=== PATIENT | female | born 1960 | race Caucasian/White ===

== ENCOUNTER 2016-11-07 10:18 | Observation (INO) | payer MEDICARE, OTHER ==
[~2016-11-07] VITALS: Ht 157.5 cm; Wt 64.8 kg
[2016-11-07] VITALS (11 sets, daily range): BP systolic 70–120; BP diastolic 31–93; PULSE 59–79; RESP 13–19; O2SAT 97–100
[~2016-11-07 10:18] MED LIST: ALBU18HF INH; ASPI-973 PO; ATOR80TA77 PO; CHOL100045 PO; CINA60TA PO; CIPR-198 PO; CLOP75TA3 PO; CYCL5TAB PO; DOCU-41 PO; GLUC1KIT IM; LANS30CA PO; LEVO200T6 PO; LORA10CA PO; LORA1TAB PO; METO-301 PO; MIDO5TAB PO; NITR0.4T SL; NOVOLOG PUMP; ONDA4TAB12 PO; PRD5T PO; PROP1DRO4 OP; SENN-133 PO; SEVE800T7 PO; TACR1CAP PO; TRIM100T PO; UBID200C2 PO; VIT1TABL50 PO
--- NOTE | 2016-11-07 10:23 | ED.REPORT ---
HPI-General Illness Date of Service Nov 07, 2016 ED Provider: Dr. 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 [place] through dialysis, her blood pressure was 70/x with a heart rate of 88. At the ED , she rates her pain at 1/10. She is steroid dependent on prednisone. Her chest pain is slightly improved after nitro en route. Per the patient's sister, she has not had a dialysis related complication since May of 2016. Nursing Notes Stated Complaint: LOW BLOOD PRESSURE Nursing Notes Reviewed: Yes Allergies: Coded Allergies: Penicillins (Verified Allergy, Unknown, UNKNOWN (CEPHALOSPORINS [place]), 06/03) Sulfa (Sulfonamide Antibiotics) (Verified Allergy, Unknown, 06/03/16) Scheduled Aspirin (Aspirin) 81 Mg Tablet 81 MG PO QAM Atorvastatin Calcium (Atorvastatin Calcium) 80 Mg Tablet 80 MG PO HS Cholecalciferol (Vitamin D3) (Vitamin D) 1,000 Unit Capsule 1,000 UNIT PO Q2DAY Cinacalcet HCl (Sensipar) 60 Mg Tablet 60 MG PO DAILYWD Take at every dinner. Ciprofloxacin Hcl (Cipro (eq) 500 MG-6 Tab Prepack) 1 Pkg Pkg 1 EACH PO BID x10 days Clopidogrel Bisulfate (Plavix) 75 Mg Tablet 75 MG PO DAILY Lansoprazole (Lansoprazole) 30 Mg Capsule.dr 30 MG PO BID Levothyroxine (Levothyroxine) 200 Mcg Tablet 200 MCG PO DAILY Metoclopramide (Reglan) 10 Mg Tablet 10 MG PO QID Before meals and at bedtime. Midodrine (Midodrine) 5 Mg Tablet 5 MG PO BID Midodrine (Midodrine) 5 Mg Tablet 5 MG PO prior to dialysis Prednisone (PredniSONE) 5 Mg Tab 5 MG PO DAILY Sevelamer Carbonate (Renvela) 800 Mg Tablet 2,400 MG PO TID Tacrolimus (Prograf) 1 Mg Capsule 2 MG PO QAM Tacrolimus (Prograf) 1 Mg Capsule 1 MG PO HS Trimethoprim (Trimethoprim) 100 Mg Tablet 100 MG PO HS Ubidecarenone (Co Q-10) 200 Mg Capsule 200 MG PO DAILY Vit B Cmplx 3/FA/Vit C/Biotin (Nephro-Evelina Rx) 1 Each Tablet 1 EACH PO DAILY Scheduled PRN Albuterol Sulfate (Ventolin HFA Inhaler) 200 Puff/18 Gm Inhaler 2 PUFF INH Q4- 6H PRN PRN For Wheezing Cyclobenzaprine (Cyclobenzaprine) 5 Mg Tablet 5 MG PO TID PRN PRN For Spasm Docusate Sodium (Colace) 100 Mg Capsule 100 MG PO BID PRN PRN For Constipation Glucagon,Human Recombinant (Glucagon Emergency Kit) 1 Mg Kit 1 MG IM PRN Hypoglycemia Loratadine (Claritin) 10 Mg Capsule 10 MG PO DAILY PRN PRN For Congestion Lorazepam (Lorazepam) 1 Mg Tablet 1 MG PO BID PRN PRN For Anxiety or Agitation Nitroglycerin SL (Nitrostat) 0.4 Mg Tab.subl 0.4 MG SL Q5MIN PRN PRN For Chest Pain Ondansetron ODT (Ondansetron ODT) 4 Mg Tab.rapdis 4 MG PO Q4 PRN PRN For Nausea Propylene Glycol/Peg 400/Pf (Systane Ultra 0.4-0.3% Eye Drp) 1 Each Droperette 1 DRP OP BID PRN PRN Dry eyes 1 drop both eyes. Sennosides (Senna) 8.6 Mg Tablet 17.2 MG PO DAILY PRN PRN For Constipation Miscellaneous Medications ([Novolog Pump]) General Time Seen by MD: 10:23 Chief Complaint Chest pain Hx Obtained From: Patient, Floral Assistant, EMS Arrived By: Ambulance Sudden in Onset?: Yes Onset Occurred: Just prior to arrival (d) Symptom Duration: Since onset Location: : Chest Quality: Painful Radiation: : Does not radiate Severity: Current: Pain level 1 out of 10 Recent Healthcare: Recent doctor visit Past Medical History Past Medical History Notes: Patient seen 11/24 and 11/30/15 for hypotension following dialysis Past Medical History History of severe coronary artery disease, status post CABG CABG 01 July 2014 in [place] Diabetes, type 1 Renal failure on hemodialysis Status post renal transplant failed on immunosuppressive Hypertension ho Left pleural effusion post-therapeutic Pleurocentesis History of hypothyroidism NSTEMI Reports: Asthma, Coronary artery disease Past Surgical History Quadruple bypass 2014 Kidney and pancreas transplant in 1993 dialysis catheter placement Cardiac cath September 2014 that angioplasty on a lesion in the [place] obtuse marginal branch and it was noted that the graft was small and not expected this will stay open much longer" Family History Noncontributory Smoking History Never Smoker Social History Alcohol Use: Denies alcohol use Drug Use: Denies drug use Other Social History: , Local resident Ambulatory Status Independent Review of Systems Full Review of Systems Cardiovascular: Reports: Chest pain Complete sys rev & neg: except as marked. Physical Exam Vital Signs Vital Signs Date Time Temp Pulse Resp B/P Pulse Ox O2 Delivery O2 Flow Rate FiO2 11/07/16 14:03 79 15 105/43 99 Room Air 11/07/16 13:08 79 15 85/42 99 Room Air 11/07/16 13:02 78 19 85/42 100 Room Air 11/07/16 12:30 75 16 83/41 97 Room Air 11/07/16 11:25 60 13 70/32 99 Room Air 11/07/16 10:40 65 14 73/31 100 Room Air 11/07/16 10:24 35.6 59 19 120/93 99 Nasal Cannula Initial VS: Reviewed Head / Eyes: Atraumatic, Normocephalic, PERRL ENT: Mucous membranes moist, Conjunctiva normal Abdomen / GI: Soft, Non-tender Extremities: Vascular intact, No swelling Skin: Warm, Dry Distress / Hydration: Positive: Distress moderate Appearance / Presentation: Positive: Obese, Pale Respiratory / Chest: Atraumatic, No respiratory distress dialysis catheter on left chest non infected Interpretation & Diagnostics Lab Results Interpretation Result Diagram: 11/07/16 1046 11/07/16 1046 Test 11/07/16 10:46 White Blood Count 5.5th/mm3 (3.8-10.1) Red Blood Count 4.10mil/mm3 (3.90-5.20) Hemoglobin 12.0g/dL (12.0-15.6) Hematocrit 38.0% (35.0-46.0) Mean Corpuscular Volume 92.7fL (81-100) Mean Corpuscular Hemoglobin 29.3pg (27.0-35.0) Mean Corpuscular Hemoglobin Concent 31.6% (32.0-37.0) Red Cell Distribution Width 17.4% (12.3-15.4) Platelet Count 97bil/L (150-400) Neutrophils (%) (Auto) 50.4% (40-74) Lymphocytes (%) (Auto) 39.8% (14-46) Monocytes (%) (Auto) 5.5% (4-12) Eosinophils (%) (Auto) 3.5% (0-5) Basophils (%) (Auto) 0.6% (0-3) Sodium Level 137mEq/L (134-144) Potassium Level 5.1mEq/L (3.5-5.2) Chloride Level 95mEq/L (97-108) Carbon Dioxide Level 20mmol/L (18-29) Blood Urea Nitrogen 23mg/dL (6-24) Creatinine 3.56mg/dL (0.57-1.00) Estimat Glomerular Filtration Rate 19mL/min (>59) Glucose Level 187mg/dL (60-99) Calcium Level 8.5mg/dL (8.5-10.1) Magnesium Level 2.1mg/dL (1.6-2.6) Total Bilirubin 0.4mg/dL (0.0-1.2) Aspartate Amino Transf (AST/SGOT) 25U/L (0-50) Alanine Aminotransferase (ALT/SGPT) 31U/L (0-32) Alkaline Phosphatase 87U/L (25-150) Troponin T 0.114ug/L (0.0-0.011) Total Protein 5.9g/dL (6.4-8.4) Albumin 3.6g/dL (3.4-5.0) ECG Interpretation ECG Interpretation: later Time: 10:52 Interpreted by: ED physician Normal ECG Interpretation: Normal sinus rhythm (w/ lateral st ) Abnormal T wave or ST segment: ST depression - ant-lat X-Ray Chest Interpretation Chest Xray Interpretation: IMPRESSION: 1. Mildly increased pulmonary vascularity suggests mild volume overload. 2. Bibasilar scars. 3. Coronary artery disease. Dictated by: Analilia Andrade M.D. on 11/07/2016 at 11:13 Approved by: Analilia Andrade M.D. on 11/07/2016 at 11:15 View: Portable Interpretation / Wet Read by: Interpret - Radiologist Re-Eval/Medical Decision Med Decision/Clinical Course Hypotension with chest pain postdialysis my concern for possible ischemia. Patient responded to IV fluids and albumin, she did require multiple consults with cardiology and nephrology. She will be admitted under observation and monitoring. Time of Eval: 10:42 Re-Evaluation/Progress Note: Pt has another episode of chest pain. Time of Eval: 11:19 Re-Evaluation/Progress Note: Pt rechecked. Plan to administer steroids. She denies any further chest pain. Time of Eval: 13:58 Re-Evaluation/Progress Note: Discussed treatment options with patient and her sister. Pt can stay and be admitted to the hospital for further observation if she desires, but Dr. Presley feels comfortable releasing her with follow up later this week. Pt and family will discuss. Time of Eval: 14:23 Re-Evaluation/Progress Note: Patient and sister have decided they would like to be admitted to hospital for further observation. Consultation #1: Referral / Consult Name: Gael Presley MD Consulted With: Cardiology Call Returned at: 11:50 Note: Case discussed w/ Dr. Presley. Recommended IV fluids. Consultation #2: Referral / Consult Name: Kobe Francois MD Consulted With: Nephrology Call Returned at: 12:07 Note: Case discussed with Dr. Francois. Consultation #3: Referral / Consult Name: Aaron Cameron MD Consulted With: Hospitalist Call Returned at: 13:21 Note: Case discussed. Dr. Cameron will see the patient in the ED. Consultation #4: Referral / Consult Name: Gael Presley MD Call Returned at: 13:35 Note: Case discussed. BP is 100/21. Dr. Presley says it is up to the patient to decide if she would like to be admitted for further observation. Consultation #5: Referral / Consult Name: Aaron Cameron MD Call Returned at: 14:26 Note: Discussion with Dr. Cameron in the ED. Counseled Regarding: Diagnosis, Lab results, Need for admission Discharge & Departure Primary Impression: Hypotension Hypotension type: unspecified hypotension type Qualified Code: I95.9 - Hypotension, unspecified Disposition: ADMITTED TO HOSPITAL Discharge Condition All VS Reviewed: Yes Condition: Stable Referrals: Popeye Crowley MD (PCP) Scribe Attestation Portion of this note were transcribed by Damaris Cool. IDr. Roman, personally performed the history, physical exam, and medical decision-making: I reviewed and confirmed the accuracy for the information in the transcribed note. Signed by: juan Sy, 11/07/16 1500 copies to: Popeye Crowley MD, Timothy S DO Nov 07, 2016 10:23 Damaris Cool Nov 07, 2016 10:33
[2016-11-07] MEDS ORDERED: Ondansetron 2 mg/mL 2 mL Inj IVPUSH ONE (10:35)
[2016-11-07] MEDS ORDERED: fentaNYL-PF 50 mCg/mL 2 mL Inj IVPUSH ONE (10:35)
[2016-11-07] MEDS ORDERED: 0.9% Sodium Chloride 500 ML IV ONE ×2 (10:50→13:05)
[2016-11-07 10:51] LABS: BASOPHILS % (AUTO) 0.6 % (0-3); EOSINOPHILS % (AUTO) 3.5 % (0-5); MONOCYTES % (AUTO) 5.5 % (4-12); Mean Corpuscular Hemoglobin 29.3 pg (27.0-35.0); Mean Corpuscular Volume 92.7 fL (81-100); NEUTROPHILS % (AUTO) 50.4 % (40-74); Platelet Count 97 bil/L (150-400)
--- NOTE | 2016-11-07 11:16 | DRSVH ---
PROCEDURE: X-RAY CHEST ONE VIEW, PORTABLE ([id number]) INDICATIONS: chest pain, hypotension TECHNIQUE: One view of the chest was acquired. COMPARISON: [facility], CR, XR CHEST 1VW (PORTABLE), 12/22/2015, 4:04. [facility], CR, XR CHEST 1VW (PORTABLE), 06/03/2016, 9:41. FINDINGS: Surgical changes and devices: Sternotomy and CABG. There is a coronary artery stent. A dialysis cath eter seen with its tip in the right atrium. Lungs and pleura: Pulmonary vascularity is only increased. There are bibasilar scars. Possible small left pleural effusion. No pneumothorax. Mediastinum: Mediastinal contours appear normal. Heart size is normal. Bones and chest wall: No suspicious bony lesions. Overlying soft tissues appear unremarkable. IMPRESSION: 1. Mildly increased pulmonary vascularity suggests mild volume overload. 2. Bibasilar scars. 3. Coronary artery disease. Dictated by: Analilia Andrade M.D. on 11/07/2016 at 11:13 Approved by: Analilia Andrade M.D. on 11/07/2016 at 11:15
[2016-11-07] MEDS ORDERED: Hydrocortisone 50 mg/mL 2 mL Inj IVPUSH ONE (11:20)
[2016-11-07] MEDS ORDERED: 0.9% Sodium Chloride 250 ML IV ONE (11:45)
[2016-11-07] MEDS ORDERED: Albumin 25% 12.5 GM in IV Premix 1 EACH IV ONE (11:45)
[2016-11-07] MEDS ORDERED: Norepineph 8,000 mCg/250 mL NS 8,000 MCG in IV Premix 1 EACH IV SCH (11:45)
[2016-11-07] MEDS ORDERED: 0.9% Sodium Chloride 1,000 ML IV ONE (11:55)
[2016-11-07 11:58] LABS: Magnesium 2.1 mg/dL (1.6-2.6)
[2016-11-07 12:02] LABS: TROPONIN T 0.114 ug/L (0.0-0.011)
[2016-11-07] MEDS ORDERED: Alum-Mag Hydrox-Simeth 30 mL Suspension PO PRN (15:05)
[2016-11-07] MEDS ORDERED: Ondansetron 2 mg/mL 2 mL Inj IVPUSH PRN (15:05)
[2016-11-07] MEDS ORDERED: Polyethylene Glycol (PEG) 17 Gm Powder PO PRN (15:05)
[2016-11-07] MEDS: Heparin 5,000 Unit/mL Inj SUBQ SCH ×2 (16:49→21:09)
--- NOTE | 2016-11-07 19:12 | NUR ---
Admit Note: Patient arrived from the ER at 1540. Patient is alert and oriented x3. She uses her call light appropriately for assistance due to her hypotension. Patent stated that she is having no pain . her only skin issue is her scattered bruises to her arms and legs due to her blood thinners. Patients admit questions were completed in the ER by the Admit nurse. Patient has her own insulin pump to deliver the appropriate dose of insulin after her blood sugar checks.
--- NOTE | 2016-11-07 21:37 | PCM.HPMED ---
Subjective Date of Service Nov 07, 2016 Primary Provider: Admitting Physician: Denver Morales MD Primary Care Physician: Popeye Crowley MD Attending Physician: Denver Morales MD Admit Status: From the Emergency Department, Full Admit, Admit to Green Team Chief Complaint: "Low blood pressure" History of Present Illness: The patient is a 56-year-old pleasant white female with a history of severe coronary artery disease, status post coronary artery bypass graft surgery 4 vessel, type I diabetes mellitus, end-stage renal disease status post failed renal and pancreatic transplants on immunosuppressive therapy and on hemodialysis. Patient has also has a history of hypertension, non-ST elevated ND, history of left pleural effusion status post therapeutic pleurocentesis and hypothyroidism who was on hemodialysis today and long-term through dialysis her blood pressure was found to be extremely low with a systolic blood pressure in the 70s. And a heart rate of 88. Her dialysis was discontinued in she was given mannitol and albumin blood pressure went up to 127 and patient was transferred to the [facility] emergency room. Patient was evaluated by Dr. Ayush Roman and patient's blood pressure dropped again to a systolic blood pressure of 69 she also had chest pain while on hemodialysis and due to some EKG changes Dr. Ayush Roman contacted Dr. Gael Presley for cardiology consultation. The patient was given 2 L of normal saline and her blood pressure improved with systolic blood pressure in the 90s. Patient had a troponin drawn which was no higher than previous troponins and patient's chest pain resolved. Patient was admitted to the hospital service for further evaluation and treatment recommendations. Review of Systems: General: She is lying supine in bed in no apparent distress. HEENT: Patient has no headache, patient has no diplopia, patient has decreased peripheral vision. Patient has no problems with their ears, nose or throat. Patient has no known dental problems. Patient has no pharyngitis or history of thrush. Neck: Patient has no stiffness in the neck. Patient has no lymphadenopathy. Patient has no other problems with their neck. Pulmonary: Patient has no shortness of breath, no cough, no expectoration of sputum. Patient has no pleurisy. Patient had chest pain on hemodialysis. However, the chest pain has resolved. Patient has no history of asthma or COPD. the patient has a nodule on his left lung which has calcified. Cardiovascular: Patient had chest pain on hemodialysis. However, just pain has resolved. Patient has a history of a heart murmur, however she does not know anymore about it. Patient has no palpitations. Patient has had a history of 2 small myocardial infarctions. One episode she had a cardiac cath in September 2014 and an angioplasty and a lesion in the kalispel obtuse marginal branch there was noted that the graft was small and was not expected to stay open much longer and the patient had a small "heart attack" soon thereafter. Patient also had a non-ST elevated ND in December 2015. Patient went for a core coronary artery catheterization and there was no significant lesions. It was felt that the myocardial infarction was induced by prolonged low blood pressure. Gastrointestinal: Patient has no history of hepatitis A, B or C. Patient has no history of gastroesophageal reflux disease. Patient has no history of nausea , vomiting, or diarrhea. Patient has no history of hematemesis, hematochezia, or melena. Patient has no history of colitis. Patient does have a history of gastroparesis and is on Reglan on a when necessary basis for this condition. 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 There is patient developed a bladder infection 2013 which led to pyelonephritis and she lost her kidney function the transplanted kidney remains in her abdomen. Patient had problems with her pancreas which was extruding enzymes into her bladder and she had her pancreas removed May 2016. Genitourinary: Patient produces approximately 2 tablespoons of urine per day Musculoskeletal: Patient has a history of Charcot foot on the right after a fracture. Patient has had a left fifth toe amputation. Neurologic: Patient has no history of stroke, no history of seizure, no history of TIA. Psychiatric: Patient has no history of psychiatric problems. The remainder of the entire review of systems was reviewed with patient and is as mentioned above otherwise negative. Allergies Coded Allergies: Penicillins (Verified Allergy, Unknown, UNKNOWN (CEPHALOSPORINS OK), 06/03) Sulfa (Sulfonamide Antibiotics) (Verified Allergy, Unknown, 06/03/16) Home Medications Scheduled Aspirin (Aspirin) 81 Mg Tablet 81 MG PO QAM Atorvastatin Calcium (Atorvastatin Calcium) 80 Mg Tablet 80 MG PO HS Cholecalciferol (Vitamin D3) (Vitamin D) 1,000 Unit Capsule 1,000 UNIT PO Q2DAY Cinacalcet HCl (Sensipar) 60 Mg Tablet 60 MG PO DAILYWD Take at every dinner. Ciprofloxacin Hcl (Cipro (eq) 500 MG-6 Tab Prepack) 1 Pkg Pkg 1 EACH PO BID x10 days Clopidogrel Bisulfate (Plavix) 75 Mg Tablet 75 MG PO DAILY Lansoprazole (Lansoprazole) 30 Mg Capsule.dr 30 MG PO BID Levothyroxine (Levothyroxine) 200 Mcg Tablet 200 MCG PO DAILY Metoclopramide (Reglan) 10 Mg Tablet 10 MG PO QID Before meals and at bedtime. Prednisone (PredniSONE) 5 Mg Tab 5 MG PO DAILY Sevelamer Carbonate (Renvela) 800 Mg Tablet 2,400 MG PO TID Tacrolimus (Prograf) 1 Mg Capsule 1 MG PO HS Ubidecarenone (Co Q-10) 200 Mg Capsule 200 MG PO DAILY Vit B Cmplx 3/FA/Vit C/Biotin (Nephro-Evelina Rx) 1 Each Tablet 1 EACH PO DAILY Scheduled PRN Albuterol Sulfate (Ventolin HFA Inhaler) 200 Puff/18 Gm Inhaler 2 PUFF INH Q4- 6H PRN PRN For Wheezing Cyclobenzaprine (Cyclobenzaprine) 5 Mg Tablet 5 MG PO TID PRN PRN For Spasm Docusate Sodium (Colace) 100 Mg Capsule 100 MG PO BID PRN PRN For Constipation Glucagon,Human Recombinant (Glucagon Emergency Kit) 1 Mg Kit 1 MG IM PRN Hypoglycemia Loratadine (Claritin) 10 Mg Capsule 10 MG PO DAILY PRN PRN For Congestion Lorazepam (Lorazepam) 1 Mg Tablet 1 MG PO BID PRN PRN For Anxiety or Agitation Nitroglycerin SL (Nitrostat) 0.4 Mg Tab.subl 0.4 MG SL Q5MIN PRN PRN For Chest Pain Ondansetron ODT (Ondansetron ODT) 4 Mg Tab.rapdis 4 MG PO Q4 PRN PRN For Nausea Propylene Glycol/Peg 400/Pf (Systane Ultra 0.4-0.3% Eye Drp) 1 Each Droperette 1 DRP OP BID PRN PRN Dry eyes 1 drop both eyes. Sennosides (Senna) 8.6 Mg Tablet 17.2 MG PO DAILY PRN PRN For Constipation Miscellaneous Medications ([Novolog Pump]) PMH History of severe coronary artery disease, status post CABG 4 vessel with a "small heart attack" after closure of one of the grafts in September 2014. CABG 01 July 2014 in [place] Diabetes, type 1 diagnosed at the age of 6 Renal failure on hemodialysis Status post renal and pancreatic transplant in 1993 which failed. 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 After removal of her pancreas are blood pressure actually became quite elevated and she was taken off the Florinef. History of Left pleural effusion post-therapeutic Pleurocentesis on multiple occasions History of hypothyroidism NSTEMI in December 2015. Patient underwent a coronary artery catheterization which revealed no new lesions and the non-ST elevated ND was thought to be due to prolonged low blood pressure. History of Asthma Coronary artery disease Surgical History Quadruple bypass 2013 Kidney and pancreas transplant in 1993. The patient had her pancreas subsequently removed in May 2016.. Patient has had a hemodialysis catheter placement. Cardiac cath September 2014 that angioplasty on a lesion in the kalispel obtuse marginal branch and it was noted that the graft was small and not expected this will stay open much longer". Patient had a right upper strength fistula placement in 2013. Patient has had bilateral cataract surgery. Patient has had an amputation of the left fifth toe. Family History The patient's father had a massive ND at the age of 48 and he survived is now 85. He also has colon cancer stage for which he has survived. His history of bladder cancer. He now has CLL with and autoimmune component. He also has had a fibrotic condition over his heart which is required 2 surgeries. The patient's mother is 79 and healthy. The patient has 1 sister, who is a dialysis nurse and is 58 and healthy, her name is Deya. Patient has 1 brother who is healthy. Social History Hx Alcohol Use: No Hx Substance Use: No Hx Tobacco Use: No Smoking Status: Never Smoker Living Arrangement: with Family Additional Information Patient was born in [place] and went to [employer] and graduated. 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 She has since retired. She has been to her Dave for 17 years. She is 0 para 0 and reached menopause at the age of 53. She lives with Elijah Clay and with HER-2 cats. Exam Vital Signs Vital Sign - Last Date Time Temp Pulse Resp B/P Pulse Ox O2 Delivery O2 Flow Rate FiO2 11/07/16 21:11 36.7 77 16 119/68 97 Room Air Exam General: Patient is laying supine in bed in no apparent distress HEENT: Head is atraumatic and normocephalic. Eyes: Pupils are equally round and reactive to light and accommodation. However, they are very narrow and she states that they are "always like that". Extraocular muscles are intact. Sclera are white, anicteric. Subconjunctival mucosa is pink. Ears and nose are unremarkable. Oropharynx: There is no mucosal lesions, there is no thrush, there is no pharyngitis. Neck: Is supple, there are no nodes, or masses or tenderness. Chest: Is clear to auscultation and percussion. There are no rales, rhonchi, wheezes or rubs. There is an old subclavian scar well-healed on the right. There is a tunneled hemodialysis catheter in the left subclavian area. There is a nonfunctional fistula in the right upper extremity. Heart: Rate, rhythm is regular. There is a grade 2 to 3/6 systolic ejection murmur heard best at the left sternal border radiating towards the base. There is no rub or gallop appreciated. Abdomen: Good bowel sounds are present. Abdomen is soft, nontender, no organomegaly or masses were appreciated. Insulin pump is present in the left lower quadrant all incisions are well-healed and there does not appear to be any hernias. Extremities: Are symmetrical and well perfused. There is no edema, there is no cellulitis, no rash. There is scattered areas of ecchymosis of the left upper extremity greater than the right upper extremity and the left lower survey greater than the right lower extremity Neurologic: There are no focal neurological deficits. Cranial nerves II through XII are intact. There are no sensory or motor deficits. Psychiatric: Patients mood is calm and she shows no sign of agitation. Genital: Deferred Rectal: Deferred Lab and Diagnostics Result Diagram: 11/07/16 1046 11/07/16 1046 X-Rays, CTs and MRIs PROCEDURE: X-RAY CHEST ONE VIEW, PORTABLE ([id number]) INDICATIONS: chest pain, hypotension TECHNIQUE: One view of the chest was acquired. COMPARISON: [facility], CR, XR CHEST 1VW (PORTABLE), 12/22/2015, 4: 04. [facility], CR, XR CHEST 1VW (PORTABLE), 06/03/2016, 9:41. FINDINGS: Surgical changes and devices: Sternotomy and CABG. There is a coronary artery stent. A dialysis catheter seen with its tip in the right atrium. Lungs and pleura: Pulmonary vascularity is only increased. There are bibasilar scars. Possible small left pleural effusion. No pneumothorax. Mediastinum: Mediastinal contours appear normal. Heart size is normal. Bones and chest wall: No suspicious bony lesions. Overlying soft tissues appear unremarkable. IMPRESSION: 1. Mildly increased pulmonary vascularity suggests mild volume overload. 2. Bibasilar scars. 3. Coronary artery disease. Dictated by: Analilia Andrade M.D. on 11/07/2016 at 11:13 Approved by: Analilia Andrade M.D. on 11/07/2016 at 11:15 Cardiac Echo Impressions Echocardiogram Report Name: LAMAR DALEY LStudy Date: 09/03 Height: 62 in Hospital Exam Location: [facility] Weight: 138 lb Gender: Female BSA: 1.6 m2 : 1960 Age: 56 yrs BP: 145/73 mmHg Reason For Study: Atherosclerotic heart disease History: CABG Ordering Physician: Performed By: Debbie Carpenter Interpretation Summary The left ventricle is normal in size. There is mild-moderate concentric left ventricular hypertrophy. The ejection fraction is estimated to be 55-60%. There is posterolateral wall mild hypokinesis. Assessment of diastolic parameters indicates normal left ventricular diastolic function and normal filling pressures. The right ventricle is normal in size and function. The tip of the dialysis catheter is seen in the right atrium. The IVC is of normal diameter and collapses greater than 50% with a sniff. This suggests a low right atrial pressure of 3 mm Hg. No other echocardiographic abnormalities seen. Compared with the prior exam from 12/21/2015, the patient is no longer in atrial flutter and the posterior wall hypokinesis is more apparent on the current exam. Assessment & Plan The patient is a 56-year-old pleasant white female with a history of severe coronary artery disease, status post coronary artery bypass graft surgery 4 vessel, type I diabetes mellitus, end-stage renal disease status post failed renal and pancreatic transplants on immunosuppressive therapy and on hemodialysis. Patient has also has a history of hypertension, non-ST elevated ND, history of left pleural effusion status post therapeutic pleurocentesis and hypothyroidism who was on hemodialysis today and long-term through dialysis her blood pressure was found to be extremely low with a systolic blood pressure in the 70s. And a heart rate of 88. Her dialysis was discontinued in she was given mannitol and albumin blood pressure went up to 127 and patient was transferred to the [facility] emergency room. Patient was evaluated by Dr. Ayush Roman and patient's blood pressure dropped again to a systolic blood pressure of 69 she also had chest pain while on hemodialysis and due to some EKG changes Dr. Ayush Roman contacted Dr. Gael Presley for cardiology consultation. The patient was given 2 L of normal saline and her blood pressure improved with systolic blood pressure in the 90s. Patient had a troponin drawn which was no higher than previous troponins and patient's chest pain resolved. Patient was admitted to the hospital service for further evaluation and treatment recommendations. # Hypertension, present at the time of admission. Improved however patient is over 4 L above her dry weight. - Possibly due to adrenal insufficiency. Will check cortisol level in a.m. - Possibly due to cardiomyopathy. Consider repeat echocardiogram Dr. Gael Presley has been consulted. - Possibly due to dehydration which is unlikely as patient is over 4 L above her dry weight. # Type I diabetes mellitus - Patient is on an insulin pump. - Check blood sugars before meals and at bedtime # Chest pain - History of severe coronary artery disease status post coronary bypass graft surgery 4 in June 2014 in [place] - History of myocardial infarction after cardiac cath in September 2014 with angioplasty and a lesion in the kalispel obtuse marginal branch at the time was noted that the graft there was small and not expected to stay open much longer. - History of non-ST elevated myocardial infarction in December 2015. Patient underwent coronary catheterization was determined that the infarction was due to prolonged low blood pressure. # Diabetic nephropathy with end-stage renal disease - Status post failed renal pancreatic transplant. - We will consult Dr. Worthy of nephrology # History of hypertension - We will hold all antihypertensives at this time as patient is hypotensive now - Nephrology and cardiology are consulted. # History of hypothyroidism - Continue replacement therapy - Check TSH level Disposition: Patient is likely to be here greater than 2 midnights for the evaluation and treatment of the above conditions, therefore patient was admitted as an inpatient. Pain Evaluation: Adequate Pain Control GI Prophylaxis: Proton Pump Inhibitor VTE Prophylaxis: Sub-Q Heparin (Unfractionated) Resuscitation Status: CPR: Attempt Resuscitation Denver Morales MD Nov 07, 2016 21:37
[2016-11-07] MEDS ORDERED: LORazepam 1 mg Tablet PO PRN (23:20)
[2016-11-07] MEDS ORDERED: Artificial Tears 15 mL Ophthalmic Solution BOTH_EYES PRN (23:30)
[2016-11-08 00:54] VITALS: BP 100/56; PULSE 76; RESP 16; O2SAT 99
[2016-11-08] MEDS ORDERED: HYDROcodone-APAP 5-325 mg Tablet PO PRN (02:25)
[2016-11-08 05:38] VITALS: BP 119/76; PULSE 83; RESP 16; O2SAT 100
[2016-11-08 05:45] LABS: BASOPHILS % (AUTO) 0.2 % (0-3); EOSINOPHILS % (AUTO) 1.5 % (0-5); Mean Corpuscular Hemoglobin 28.9 pg (27.0-35.0); Mean Corpuscular Volume 90.7 fL (81-100); NEUTROPHILS % (AUTO) 36.5 % (40-74); Platelet Count 133 bil/L (150-400)
[2016-11-08 05:49] VITALS: PULSE 77
[2016-11-08 05:55] LABS: ERYTHROCYTE SEDIMENTATION RATE 9 mm/hr (0-40)
[2016-11-08 06:07] LABS: Magnesium 2.5 mg/dL (1.6-2.6)
--- NOTE | 2016-11-08 06:50 | NUR ---
Blood sugar Patient managing own insulin with insulin pump. blood sugar checked with hospital glucometer. bed time blood sugar 326 patient administered 10 units of insulin. at 0500 patient blood sugar 55, patient cold clammy, alert and oriented. she was given apple juice per request. 15 minutes later blood sugar 52. patient declined any more food/drink states "i am a dialysis patient i don't want too much fluid. Patient requested D50 half amp. no orders paged. patient given saltines and peanut butter during wait. Administered D50 half amp. 15 minutes later blood sugar 108. will continue to monitor.
[2016-11-08] MEDS ORDERED: Albuterol 2.5 mg/3 mL Inhalation Solution NEB PRN (07:00)
[2016-11-08] MEDS ORDERED: Pantoprazole 40 mg ER24 Tablet PO SCH (07:30)
[2016-11-08 08:00] VITALS: PULSE 63
[2016-11-08] MEDS: Heparin 5,000 Unit/mL Inj SUBQ SCH (08:15)
[2016-11-08] MEDS ORDERED: predniSONE 5 mg Tablet PO SCH (08:30)
[2016-11-08] MEDS ORDERED: Vitamin B Complex/Vit C Tablet PO SCH (08:30)
[2016-11-08 09:36] VITALS: BP 108/64; PULSE 65; RESP 18; O2SAT 99
[2016-11-08] MEDS ORDERED: INSULIN PUMP SUBQ SCH (10:15)
--- NOTE | 2016-11-08 10:28 | NUR ---
Social Work: Initial Assessment / Readiness for d/c Data: Pt is a 56 y/o female admitted for hypotension, ESRD, chest pain. Pt's PCP is Dr Crowley, pt's insurance is [employer] [facility], Medicare. EMR reviewed. Readmit score not listed. MANAGER ACTUARIAL met with pt at bedside, role explained. Pt states she lives in [place] in a single story home with her spouse where she uses no DME, does not drive, has no hx of HH or SNF, no LTC or VA benefits. Pt does not have AD/DPOA, accepted info from MANAGER ACTUARIAL. No d/c planning needs at this time. MANAGER ACTUARIAL will continue to follow if needs arise. Assessment: Pt who is independent at baseline. Plan: Pt will d/c home via POV with family, likely today per MD. No d/c planning needs at this time. MANAGER ACTUARIAL will continue to follow if needs arise. SUSSY Marquez Addendum: 11/08/16 at 1031 by FANNY JOYCE Amended: Links added.
--- NOTE | 2016-11-08 10:31 | NUR ---
Social Work: Discharge Data: Pt is on day 1 of hospitalization. EMR reviewed. D/C orders are in. No d/c needs. DEFECT REPAIRER [employer] will continue to follow if needs arise. Plan: Pt will d/c home today via POV with family. No d/c needs. DEFECT REPAIRER [employer]WARE will continue to follow if needs arise. SUSSY Marquez
--- NOTE | 2016-11-08 10:35 | PCM.DIMED ---
Discharge Instructions Date of Service Nov 08, 2016 Dates of Hospitalization Nov 07, 2016 at 14:45 Discharge Diagnosis Discharge Diagnosis Hypotension Diet Heart Healthy, Renal Diet Activity No restrictions (Patient may resume usual activities gradually as tolerated.) Call your provider Fever or Chills, Shortness of breath, Bleeding, Chest pain, Vomitting, Excessive diarrhea, Weakness (unilateral) Patient Instructions Follow-up Provider: Tammi Tian MD Follow-up with PCP in: 1 week Provider: Martha Eaton MD, PhD Follow-up in: 1 week (Patient has an appointment today.) Denver Morales MD Nov 08, 2016 10:35
--- NOTE | 2016-11-08 11:40 | NUR ---
Discharge Nursing Note: Patient was discharged to home at 1140. Her IVs x2 were removed intact. Her Telemetry was discontinued intact. All of her discharge information was reviewed with her and her questions were answered to her satisfaction. She was brought to the hospital lobby in a wheelchair by nursing staff member and she was driven to home by her .
--- NOTE | 2016-11-09 00:16 | PCM.DC.MED ---
Discharge Summary Date of Service Nov 08, 2016 Dates of Hospitalization Date of Hospital Admission Nov 07, 2016 at 14:45 Date of Discharge: Nov 08, 2016 Providers: Admitting Physician: Denver Morales MD Primary Care Physician: Popeye Crowley MD Attending Physician: Denver Morales MD Diagnosis at Time of Discharge Diagnosis at Time of Discharge Hypotension Consultations Dr. Balaji Worthy of nephrology. Procedures XRay, CTs & MRIs PROCEDURE: X-RAY CHEST ONE VIEW, PORTABLE ([id number]) INDICATIONS: chest pain, hypotension TECHNIQUE: One view of the chest was acquired. COMPARISON: [facility], CR, XR CHEST 1VW (PORTABLE), 12/22/2015, 4: 04. [facility], CR, XR CHEST 1VW (PORTABLE), 06/03/2016, 9:41. FINDINGS: Surgical changes and devices: Sternotomy and CABG. There is a coronary artery stent. A dialysis catheter seen with its tip in the right atrium. Lungs and pleura: Pulmonary vascularity is only increased. There are bibasilar scars. Possible small left pleural effusion. No pneumothorax. Mediastinum: Mediastinal contours appear normal. Heart size is normal. Bones and chest wall: No suspicious bony lesions. Overlying soft tissues appear unremarkable. IMPRESSION: 1. Mildly increased pulmonary vascularity suggests mild volume overload. 2. Bibasilar scars. 3. Coronary artery disease. Dictated by: Analilia Andrade M.D. on 11/07/2016 at 11:13 Approved by: Analilia Andrade M.D. on 11/07/2016 at 11:15 Cardiac Echo Impression Echocardiogram Report Name: LAMAR DALEY LStudy Date: 09/03 Height: 62 in Hospital Exam Location: [facility] Weight: 138 lb Gender: Female BSA: 1.6 m2 : 1960 Age: 56 yrs BP: 145/73 mmHg Reason For Study: Atherosclerotic heart disease History: CABG Ordering Physician: Performed By: Debbie Carpenter Interpretation Summary The left ventricle is normal in size. There is mild-moderate concentric left ventricular hypertrophy. The ejection fraction is estimated to be 55-60%. There is posterolateral wall mild hypokinesis. Assessment of diastolic parameters indicates normal left ventricular diastolic function and normal filling pressures. The right ventricle is normal in size and function. The tip of the dialysis catheter is seen in the right atrium. The IVC is of normal diameter and collapses greater than 50% with a sniff. This suggests a low right atrial pressure of 3 mm Hg. No other echocardiographic abnormalities seen. Compared with the prior exam from 12/21/2015, the patient is no longer in atrial flutter and the posterior wall hypokinesis is more apparent on the current exam. Brief History The patient is a 56[facility] with a history of severe coronary artery disease, status post coronary artery bypass graft surgery 4 vessel, type I diabetes mellitus, end-stage renal disease status post failed renal and pancreatic transplants on immunosuppressive therapy and on hemodialysis. Patient has also has a history of hypertension, non-ST elevated MO, history of left pleural effusion status post therapeutic pleurocentesis and hypothyroidism who was on hemodialysis today and nursing home through dialysis her blood pressure was found to be extremely low with a systolic blood pressure in the 70s. And a heart rate of 88. Her dialysis was discontinued in she was given mannitol and albumin blood pressure went up to 127 and patient was transferred to the [facility] emergency room. Patient was evaluated by Dr. Ayush Roman and patient's blood pressure dropped again to a systolic blood pressure of 69 she also had chest pain while on hemodialysis and due to some EKG changes Dr. Ayush Roman contacted Dr. Gael Presley for cardiology consultation. The patient was given 2 L of normal saline and her blood pressure improved with systolic blood pressure in the 90s. Patient had a troponin drawn which was no higher than previous troponins and patient's chest pain resolved. Patient was admitted to the hospital service for further evaluation and treatment recommendations. Hospital Course The patient is a 56-[facility] female with a history of severe coronary artery disease, status post coronary artery bypass graft surgery 4 vessel, type I diabetes mellitus, end-stage renal disease status post failed renal and pancreatic transplants on immunosuppressive therapy and on hemodialysis. Patient has also has a history of hypertension, non-ST elevated MO, history of left pleural effusion status post therapeutic pleurocentesis and hypothyroidism who was on hemodialysis today and nursing home through dialysis her blood pressure was found to be extremely low with a systolic blood pressure in the 70s. And a heart rate of 88. Her dialysis was discontinued in she was given mannitol and albumin blood pressure went up to 127 and patient was transferred to the [facility] emergency room. Patient was evaluated by Dr. Ayush Roman and patient's blood pressure dropped again to a systolic blood pressure of 69 she also had chest pain while on hemodialysis and due to some EKG changes Dr. Ayush Roman contacted Dr. Gael Presley for cardiology consultation. The patient was given 2 L of normal saline and her blood pressure improved with systolic blood pressure in the 90s. Patient had a troponin drawn which was no higher than previous troponins and patient's chest pain resolved. Patient was admitted to the hospital service for further evaluation and treatment recommendations. # Hypertension, present at the time of admission. Improved however patient is over 4 L above her dry weight. - Possibly due to adrenal insufficiency. Will check cortisol level in a.m. - Possibly due to cardiomyopathy. Consider repeat echocardiogram Dr. Gael Presley has been consulted. - Possibly due to dehydration which is unlikely as patient is over 4 L above her dry weight. # Type I diabetes mellitus - Patient is on an insulin pump. - Check blood sugars before meals and at bedtime # Chest pain - History of severe coronary artery disease status post coronary bypass graft surgery 4 in June 2014 in [place] - History of myocardial infarction after cardiac cath in September 2014 with angioplasty and a lesion in the sun'aq obtuse marginal branch at the time was noted that the graft there was small and not expected to stay open much longer. - History of non-ST elevated myocardial infarction in December 2015. Patient underwent coronary catheterization was determined that the infarction was due to prolonged low blood pressure. # Diabetic nephropathy with end-stage renal disease - Status post failed renal pancreatic transplant. - We will consult Dr. Worthy of nephrology # History of hypertension - We will hold all antihypertensives at this time as patient is hypotensive now - Nephrology and cardiology are consulted. # History of hypothyroidism - Continue replacement therapy - Check TSH level Disposition: Patient has been stable since admission. Dr. Worthy discussed the patient's case with the patient's installation helper Dr. Francois who agrees to see the patient in his office this afternoon. Therefore, we will discharge patient home to follow-up with Dr. Francois this afternoon. Exam Vital Signs (Last) Date Time Temp Pulse Resp B/P Pulse Ox O2 Delivery O2 Flow Rate FiO2 11/08/16 09:36 36.8 65 18 108/64 99 Room Air Exam General: Patient is laying supine in bed in no apparent distress HEENT: Head is atraumatic and normocephalic. Eyes: Pupils are equally round and reactive to light and accommodation. However, they are very narrow and she states that they are "always like that". Extraocular muscles are intact. Sclera are white, anicteric. Subconjunctival mucosa is pink. Ears and nose are unremarkable. Oropharynx: There is no mucosal lesions, there is no thrush, there is no pharyngitis. Neck: Is supple, there are no nodes, or masses or tenderness. Chest: Is clear to auscultation and percussion. There are no rales, rhonchi, wheezes or rubs. There is an old subclavian scar well-healed on the right. There is a tunneled hemodialysis catheter in the left subclavian area. There is a nonfunctional fistula in the right upper extremity. Heart: Rate, rhythm is regular. There is a grade 2 to 3/6 systolic ejection murmur heard best at the left sternal border radiating towards the base. There is no rub or gallop appreciated. Abdomen: Good bowel sounds are present. Abdomen is soft, nontender, no organomegaly or masses were appreciated. Insulin pump is present in the left lower quadrant all incisions are well-healed and there does not appear to be any hernias. Extremities: Are symmetrical and well perfused. There is no edema, there is no cellulitis, no rash. There is scattered areas of ecchymosis of the left upper extremity greater than the right upper extremity and the left lower survey greater than the right lower extremity Neurologic: There are no focal neurological deficits. Cranial nerves II through XII are intact. There are no sensory or motor deficits. Psychiatric: Patients mood is calm and she shows no sign of agitation. Genital: Deferred Rectal: Deferred Test 11/07/16 15:50 11/08/16 05:15 Troponin T 0.113ug/L (0.0-0.011) White Blood Count 8.5th/mm3 (3.8-10.1) Red Blood Count 4.08mil/mm3 (3.90-5.20) Hemoglobin 11.8g/dL (12.0-15.6) Hematocrit 37.0% (35.0-46.0) Mean Corpuscular Volume 90.7fL (81-100) Mean Corpuscular Hemoglobin 28.9pg (27.0-35.0) Mean Corpuscular Hemoglobin Concent 31.9% (32.0-37.0) Red Cell Distribution Width 17.8% (12.3-15.4) Platelet Count 133bil/L (150-400) Neutrophils (%) (Auto) 36.5% (40-74) Lymphocytes (%) (Auto) 44.4% (14-46) Monocytes (%) (Auto) 17.0% (4-12) Eosinophils (%) (Auto) 1.5% (0-5) Basophils (%) (Auto) 0.2% (0-3) Erythrocyte Sedimentation Rate 9mm/hr (0-40) Sodium Level 137mEq/L (134-144) Potassium Level 5.0mEq/L (3.5-5.2) Chloride Level 98mEq/L (97-108) Carbon Dioxide Level 21mmol/L (18-29) Blood Urea Nitrogen 52mg/dL (6-24) Creatinine 5.96mg/dL (0.57-1.00) Estimat Glomerular Filtration Rate 10mL/min (>59) Glucose Level 49mg/dL (60-99) Calcium Level 9.2mg/dL (8.5-10.1) Magnesium Level 2.5mg/dL (1.6-2.6) Total Bilirubin 0.2mg/dL (0.0-1.2) Aspartate Amino Transf (AST/SGOT) 28U/L (0-50) Alanine Aminotransferase (ALT/SGPT) 32U/L (0-32) Alkaline Phosphatase 92U/L (25-150) C-Reactive Protein 0.5mg/dL (0.0-0.5) Total Protein 5.9g/dL (6.4-8.4) Albumin 3.8g/dL (3.4-5.0) Triglycerides Level 36mg/dL (0-149) Cholesterol Level 79mg/dL (100-199) LDL Cholesterol, Calculated 8.800mg/dL (0-99) VLDL Cholesterol 7.200mg/dL HDL Cholesterol 63mg/dL (>39) Cholesterol/HDL Ratio 1.25 (0.0-4.4) Procalcitonin 3.21ng/mL (0.00-0.08) Thyroid Stimulating Hormone (TSH) 0.213uIU/mL (0.450-4.500) Discharge Medications Discharge Medications Aspirin (Aspirin) 81 Mg Tablet 81 MG PO QAM (Reported) Atorvastatin Calcium (Atorvastatin Calcium) 80 Mg Tablet 80 MG PO HS (Reported) Cholecalciferol (Vitamin D3) (Vitamin D) 1,000 Unit Capsule 1,000 UNIT PO Q2DAY (Reported) Cinacalcet HCl (Sensipar) 60 Mg Tablet 60 MG PO DAILYWD (Reported) Take at every dinner. Clopidogrel Bisulfate (Plavix) 75 Mg Tablet 75 MG PO DAILY Prescribed by: ALVIN FRANCO MD Lansoprazole (Lansoprazole) 30 Mg Capsule.dr 30 MG PO BID (Reported) Levothyroxine (Levothyroxine) 200 Mcg Tablet 200 MCG PO DAILY (Reported) Metoclopramide (Reglan) 10 Mg Tablet 10 MG PO QID (Reported) Before meals and at bedtime. Prednisone (PredniSONE) 5 Mg Tab 5 MG PO DAILY (Reported) Sevelamer Carbonate (Renvela) 800 Mg Tablet 2,400 MG PO TID (Reported) Tacrolimus (Prograf) 1 Mg Capsule 1 MG PO HS (Reported) Ubidecarenone (Co Q-10) 200 Mg Capsule 200 MG PO DAILY (Reported) Vit B Cmplx 3/FA/Vit C/Biotin (Nephro-Evelina Rx) 1 Each Tablet 1 EACH PO DAILY ( Reported) As needed Albuterol Sulfate (Ventolin HFA Inhaler) 200 Puff/18 Gm Inhaler 2 PUFF INH Q4- 6H PRN PRN For Wheezing (Reported) Cyclobenzaprine (Cyclobenzaprine) 5 Mg Tablet 5 MG PO TID PRN PRN For Spasm ( Reported) Docusate Sodium (Colace) 100 Mg Capsule 100 MG PO BID PRN PRN For Constipation ( Reported) Glucagon,Human Recombinant (Glucagon Emergency Kit) 1 Mg Kit 1 MG IM PRN Hypoglycemia (Reported) Loratadine (Claritin) 10 Mg Capsule 10 MG PO DAILY PRN PRN For Congestion ( Reported) Lorazepam (Lorazepam) 1 Mg Tablet 1 MG PO BID PRN PRN For Anxiety or Agitation ( Reported) Nitroglycerin SL (Nitrostat) 0.4 Mg Tab.subl 0.4 MG SL Q5MIN PRN PRN For Chest Pain (Reported) Ondansetron ODT (Ondansetron ODT) 4 Mg Tab.rapdis 4 MG PO Q4 PRN PRN For Nausea (Reported) Propylene Glycol/Peg 400/Pf (Systane Ultra 0.4-0.3% Eye Drp) 1 Each Droperette 1 DRP OP BID PRN PRN Dry eyes (Reported) 1 drop both eyes. Sennosides (Senna) 8.6 Mg Tablet 17.2 MG PO DAILY PRN PRN For Constipation ( Reported) Miscellaneous Medications ([Novolog Pump]) (Reported) Followup Plan Disposition: The patient is being discharged home. Discharge Diet: Heart Healthy, Renal Diet Discharge Activity: No restrictions (Patient may resume usual activities gradually as tolerated.) Follow-up Provider: Tammi Tian MD Follow-up with PCP in: 1 week Provider: Martha Eaton MD, PhD Follow-up in: 1 week (Patient has an appointment today.) Time spent Discharge time spent was less than 30 minutes. Denver Morales MD Nov 09, 2016 00:16
== END 2016-11-08 11:34 | disposition home or self-care (01) ==
LOC: EDUNIT# 10:18 → SED 10:18 → EDBD 10:18 → CCU 13:36 → UNDOADMIN 13:36 → MPC 14:45 → INTOOBSV 14:45
PROVIDERS: ADMIT Internal Medicine Infectious Disease; ATTEND Internal Medicine Infectious Disease
DX: I95.3 Hypotension of hemodialysis (principal); R07.9 Chest pain, unspecified; Z99.2 Dependence on renal dialysis; I25.10 Atherosclerotic heart disease of native coronary artery without angina pectoris; E10.22 Type 1 diabetes mellitus with diabetic chronic kidney disease; N18.6 End stage renal disease; I12.0 Hypertensive chronic kidney disease with stage 5 chronic kidney disease or end stage renal disease; T86.12 Kidney transplant failure; T86.891 Other transplanted tissue failure; I25.2 Old myocardial infarction; J45.909 Unspecified asthma, uncomplicated; E03.9 Hypothyroidism, unspecified; E27.49 Other adrenocortical insufficiency; J90 Pleural effusion, not elsewhere classified; Z96.41 Presence of insulin pump (external) (internal); Z79.4 Long term (current) use of insulin; Z95.1 Presence of aortocoronary bypass graft; Z95.5 Presence of coronary angioplasty implant and graft; Z89.422 Acquired absence of other left toe(s); Z79.82 Long term (current) use of aspirin; Z79.52 Long term (current) use of systemic steroids; Z79.02 Long term (current) use of antithrombotics/antiplatelets; Z79.51 Long term (current) use of inhaled steroids
CPT/HCPCS: 36415; 71010; 80053; 80061; 82948; 83735; 84145; 84443; 84484; 85025; 85651; 86140; 86850; 93005; 96361; 96374; 96375; 99285; G0378; J1644; J1720; J7030; J7040; J7512; P9047